=== PATIENT | male | born 1970 | race Caucasian/White ===

== ENCOUNTER 2021-04-15 10:43 | Outpatient (CLI) | payer SELFPAY ==
[~2021-04-15] VITALS: Ht 177.8 cm; Wt 118.2 kg
[2021-04-15 10:40] VITALS: BP 133/80
[~2021-04-15 10:43] MED LIST: HYDR1CAP2 PO
[2021-04-15] MEDS ORDERED: ACETAMINOPHEN 500 MG TAB (TYLENOL) PO PRN (11:00)
[2021-04-15] MEDS ORDERED: CASIRIVIMAB/IMDEVIMAB 1,200 MG in NS (IVPB) 250 ML IV ONE (11:00)
[2021-04-15] MEDS ORDERED: ONDANSETRON 4 MG/2 ML (SDV) Z0FRAN IV PRN (11:00)
[2021-04-15] MEDS ORDERED: EPINEPHrine INJECTION 1 MG/ML AMP IM PRN (11:00)
[2021-04-15] MEDS ORDERED: diphenhydrAMINE 50 MG/ML INJ (BENADRYL) IV PRN (11:00)
[2021-04-15 12:03] VITALS: BP 117/68
== END 2021-04-15 12:50 | disposition home or self-care (01) ==
LOC: INFUSION 10:43
PROVIDERS: ATTEND Student in an Organized Health Care Education/Training Program
DX: Z23 Encounter for immunization (principal); U07.1 COVID-19